=== PATIENT | male | born 1960 | race Caucasian/White ===

== ENCOUNTER 2018-04-18 11:35 | Day surgery (SDC) | payer MEDICAID ==
[~2018-04-18] VITALS: Ht 175.4 cm; Wt 69.4 kg
[2018-04-18] VITALS (7 sets, daily range): BP systolic 111–130; BP diastolic 83–103; PULSE 68–77; TEMP 98
[~2018-04-18 11:35] MED LIST: AMLODIPINE5 MG PO; ASPIRIN E.C. 8181 MG PO; CITALOPRAM40 MG PO; GABAPENTIN800 MG PO; HCTZ 25MG25 MG PO; LEVOTHYROXINE0.05 MG PO; METOPROLOL25 MG PO; PRIL40 PO; TERAZOSIN HCL2 M1 PO; TYLENOL PM EXTR1 TA1 PO; ZOCOR 40MG40 MG PO
[2018-04-18 12:08] LABS: HEMATOCRIT 49.3 % (42.0-52.0); HEMOGLOBIN 16.9 g/dl (13.5-18.0); MEAN CELL VOLUME 95 fl (80.0-100.0); MEAN CORPUSCULAR HEMOGLOBIN 33 pg (27.0-31.0); MEAN CORPUSCULAR HGB CONC 34 g/dl (33.0-37.0); PLATELET COUNT 236 K/mm3 (130-400); RED BLOOD COUNT 5.19 M/mm3 (4.20-5.60); REDCELL DISTRIBUTION WIDTH-CV 11.9 % (11.5-14.5)
[2018-04-18 12:14] LABS: CALCIUM 8.7 mg/dL (8.4-10.2); CREATININE, serum 0.77 mg/dL (0.66-1.25); POTASSIUM 3.7 mmol/L (3.4-5.0)
[2018-04-18] MEDS ORDERED: PROAIR HFA0.09 MG/AC IH (12:15)
[2018-04-18] MEDS ORDERED: SINGULAIR 110 MG/TAB PO (12:15)
[2018-04-18] MEDS ORDERED: PLAVIX 75MG TAB75 MG PO (12:16)
[2018-04-18 12:18] LABS: INR 0.9 (0.8-3.0); PROTHROMBIN TIME 10.6 SECONDS (9.7-12.8)
[2018-04-18] MEDS ORDERED: TRILEPTAL 150M150 MG PO (12:18)
[2018-04-18] MEDS ORDERED: DESYREL 100MG100 MG PO (12:19)
[2018-04-18] MEDS ORDERED: PERCOCET 325 MG1 TA2 PO (12:20)
[2018-04-18] MEDS ORDERED: PRISTIQ25 MG PO (12:21)
[2018-04-18] MEDS ORDERED: XANAX2 MG PO (12:22)
== END 2018-04-18 19:04 | disposition home or self-care (01) ==
LOC: COL.CAR 11:35
PROVIDERS: Internal Medicine Interventional Cardiology
DX: I25.10 Atherosclerotic heart disease of native coronary artery without angina pectoris (principal)
CPT/HCPCS: J1644; J2250; J3010; Q9967

== ENCOUNTER 2020-07-18 06:10 | Day surgery (SDC) | payer MEDICAID ==
[2020-07-18] VITALS (11 sets, daily range): BP systolic 84–132; BP diastolic 53–87; PULSE 62–76; TEMP 97.7
[~2020-07-18] VITALS: Ht 175.3 cm; Wt 87.4 kg
[~2020-07-18 06:10] MED LIST changes: +DESYREL 100MG100 MG PO; +PERCOCET 325 MG1 TA2 PO; +PLAVIX 75MG TAB75 MG PO; +PRISTIQ25 MG PO; +PROAIR HFA0.09 MG/AC IH; +SINGULAIR 110 MG/TAB PO; +TRILEPTAL 150M150 MG PO; +XANAX2 MG PO
[2020-07-18 07:06] LABS: HEMATOCRIT 48.6 % (42.0-52.0); MEAN CELL VOLUME 92 fl (80.0-100.0); MEAN CORPUSCULAR HEMOGLOBIN 32 pg (27.0-31.0); MEAN CORPUSCULAR HGB CONC 35 g/dl (33.0-37.0); MEAN PLATELET VOLUME 9.2 fl (7.4-10.4); PLATELET COUNT 284 K/mm3 (130-400); RED BLOOD COUNT 5.31 M/mm3 (4.20-5.60); REDCELL DISTRIBUTION WIDTH-CV 12.5 % (11.5-14.5)
[2020-07-18 07:20] LABS: CALCIUM 9.3 mg/dL (8.4-10.2); CREATININE, serum 0.84 (0.66-1.25); POTASSIUM 4.1 mmol/L (3.4-5.0)
[2020-07-18 07:24] LABS: INR 0.8 (0.8-3.0); PROTHROMBIN TIME 9.2 SECONDS (9.7-12.8)
[2020-07-18] MEDS ORDERED: 00186-0370-20 IH (07:24)
[2020-07-18] MEDS ORDERED: DULERA1 ARO IH (07:24)
[2020-07-18] MEDS ORDERED: CLARITIN 1010 MG/TAB PO (07:25)
[2020-07-18] MEDS ORDERED: NEURONTIN800 MG/TAB PO (07:25)
[2020-07-18] MEDS ORDERED: AMBIEN 5MG TABLE5 MG PO (07:26)
[2020-07-18 07:27] LABS: PARTIAL THROMBOPLASTIN TIME 32.4 SECONDS (26.0-37.0)
[2020-07-18] MEDS ORDERED: PRAVACHOL 40MG40 MG PO (07:27)
[2020-07-18] MEDS ORDERED: FLONASEALLERGY NS (07:27)
[2020-07-18] MEDS ORDERED: NITROSTAT0.6 MG SL (07:28)
--- NOTE | 2020-07-18 08:48 | NUR ---
SEE MERGE DOCUMENTATION FOR MEDICATION ADMINISTRATION AND INTRA/POST PROCEDURE SEDATION ASSESSMENTS.
--- NOTE | 2020-07-18 09:30 | NUR ---
Report from Janny LOWERY. Transferred by bed from [facility]. Right Tband with 15 cc air CD&I, good pulses and cap refill < 3 secs noted. DEnies pain at this time. VSS.
--- NOTE | 2020-07-18 13:15 | NUR ---
Released 15 cc from right Tband and dressing applied. INT discontinued intact. Discharge instructions given. Transferred to private car by briana
== END 2020-07-18 13:30 | disposition home or self-care (01) ==
LOC: COL.CAR 06:10
PROVIDERS: Internal Medicine Cardiovascular Disease
DX: I25.10 Atherosclerotic heart disease of native coronary artery without angina pectoris (principal); I73.9 Peripheral vascular disease, unspecified; J44.9 Chronic obstructive pulmonary disease, unspecified; I10 Essential (primary) hypertension; E03.9 Hypothyroidism, unspecified; Z88.8 Allergy status to other drugs, medicaments and biological substances; Z79.82 Long term (current) use of aspirin; Z79.01 Long term (current) use of anticoagulants; Z88.2 Allergy status to sulfonamides; Z95.5 Presence of coronary angioplasty implant and graft
CPT/HCPCS: J1644; J2250; J3010; J7030

== ENCOUNTER → 2021-10-19 | Outpatient (CLI) | payer MEDICAID ==
[~2021-10-19] VITALS: Ht 175.6 cm; Wt 76.3 kg
[~2021-10-19] MED LIST changes: +00186-0370-20 IH; +AMBIEN 5MG TABLE5 MG PO; +BRILINTA90 MG PO; +CLARITIN 1010 MG/TAB PO; +DULERA1 ARO IH; +FLONASEALLERGY NS; +IMDUR 30MG30 MG/TAB PO; +INCRUSE EL62.5 MCG/A IH; +LEVOXYL0.1 MG PO; +LIPITOR 40MG TA40 MG PO; +NEURONTIN800 MG/TAB PO; +NITROSTAT0.6 MG SL; +NORVASC 10MG10 MG PO; +PRAVACHOL 40MG40 MG PO; +PRINIVIL40 MG PO; +TESSALON P100 MG/CAP PO
[2021-10-19 09:53] VITALS: BP 151/104; PULSE 72; TEMP 97.5
[2021-10-19 11:01] VITALS: BP 137/88; PULSE 64
[2021-10-19 11:08] VITALS: BP 122/82; PULSE 89
[2021-10-19 11:11] VITALS: BP 113/82; PULSE 92
[2021-10-19 11:12] VITALS: BP 120/80; PULSE 83
[2021-10-19 11:13] VITALS: BP 120/82; PULSE 78
== END ==
LOC: COL.CARD 09:31
DX: R06.02 Shortness of breath (principal)
CPT/HCPCS: A9500

== ENCOUNTER → 2023-02-17 | Outpatient (CLI) | payer MEDICAID | LOC: MHCPAIN 09:18 | DX: M47.817 Spondylosis without myelopathy or radiculopathy, lumbosacral region (principal); M48.062 Spinal stenosis, lumbar region with neurogenic claudication; M54.16 Radiculopathy, lumbar region | CPT/HCPCS: J1100; Q9967 ==